=== PATIENT | female | born 1980 | race Caucasian/White ===

== ENCOUNTER 2017-01-15 11:06 | Day surgery (SDC) | payer BC, OTHER ==
[2016-12-26 09:34] VITALS: Ht 162.6 cm; Wt 84.0 kg
--- NOTE | 2017-01-14 16:59 | History and Physical ---
History & Physical Date Jan 14, 2017. Chief Complaint right ankle pain and instability History of Present Illness The patient is a 36 year old female with complaints of right ankle pain. She has a hx of rolling the right ankle multiple times. She had a previous lateral ankle ligament reconstruction but the procedure did not help her. She failed conservative management of the ankle instability. She is now being set up for surgical tx. Past Medical/Surgical History PMH: Congenital heart disease, murmur, anxiety/depression, degenerative disc disease, Past surgical hx: Right ankle surgery 1995, Tubal ligation 2010, Hysterectomy 2014 Allergies: none Allergies Coded Allergies: No Known Allergies (Unverified , 12/26/16) Home Medications Scheduled Amantadine Hcl (Amantadine Hcl), 100 MG PO HS Amitriptyline HCl (Amitriptyline HCl), 1 TAB PO HS Metoprolol Succinate (Metoprolol Succinate ER), 1 TAB PO QPM Multivitamin (Multivitamin), 1 TAB PO DAILY Scheduled PRN Acetaminophen/Codeine (Tylenol W/Codeine #3), 1 TAB PO Q8 PRN for Pain Physical Examination Skin: warm/dry, no rash, + pertinent finding (Healed lateral right ankle incision) Eyes: normal inspection ENT: normal ENT inspection, pharynx normal Head: normocephalic, atraumatic Neck: supple, no adenopathy, trachea midline Respiratory/Chest: lungs clear, normal breath sounds, no respiratory distress Cardiovascular: regular rate, rhythm Abdomen / GI: normal bowel sounds, non tender Extremities: normal range of motion, + pertinent finding (Antalgic right gait. Tender at the ATFL. Laxity with anterior drawer and talar tilt. ) Neurologic/Psych: no motor/sensory deficits, alert, oriented x 3 Diagnosis Right ankle instability Right ankle retained anchors lateral malleolus Plan of Treatment Recommend a right ankle scope with synovectomy, open modified Brostrom with Arthrex internal brace, removal hardware from lateral malleolus. All potential risks, benefits, complications, alternatives, and rehab were discussed with the patient. The patient wishes to proceed with the surgery as indicated. She will be scheduled for 01.15.17 with plan for ASA 81 mg BID x 30 days for DVT prophylaxis.
[~2017-01-15] VITALS: Ht 162.6 cm; Wt 84.0 kg
[~2017-01-15 11:06] MED LIST: ACET-749 PO; AMAN100C18 PO; AMT10 PO; ATROPINE SULFATE 0.1 MG/ML 5ML SYR IV PRN; BUPIVACAINE 0.5 % 5 MG/1 ML PF 10ML VIAL ONE; EpHEDrine SULFATE INJ 50 MG/ML AMP IV PRN; FENTANYL CITRATE INJ 50 MCG/1 ML 2 ML VIAL IV PRN; HYDROmorphone INJ 1 MG/ML SYR IV PRN; LABETALOL HCL IV 5 MG/ML 20ML IV PRN; LACTATED RINGER'S 1000ML 1,000 ML IV SCH; MEPERIDINE HCL 25 MG/ML CARP IV PRN; MULT-506 PO; ONDANSETRON INJ 2 MG/ML 2 ML VIAL IV PRN; SCOPOLAMINE 1.5 MG TDSY TD SCH; TPRSR/25 PO
--- NOTE | 2017-01-15 11:16 | History & Physical Bridge Note ---
H&P Re-Evaluation Bridge Note: I have examined the patient, reviewed the History & Physical and in the interval since the performance of the History & Physical I have noted the following changes of clinical significance: No changes noted
[2017-01-15 11:35] VITALS: BP 125/77; PULSE 75; TEMP 36.7; O2SAT 98
[2017-01-15] MEDS ORDERED: MIDAZOLAM HCL 1 MG/ML 2ML VIAL ONE ×2 (12:31→13:10)
[2017-01-15] MEDS ORDERED: FENTANYL CITRATE INJ 50 MCG/1 ML 2 ML VIAL ONE ×3 (12:31→15:34)
[2017-01-15] MEDS ORDERED: PROPOFOL IV EMULSION 10 MG/ML 20 ML VIAL IV ONE (13:10)
[2017-01-15] MEDS ORDERED: ONDANSETRON INJ 2 MG/ML 2 ML VIAL ONE ×2 (13:10→15:27)
[2017-01-15] MEDS ORDERED: LIDOCAINE HCL 2% 2 ML VIAL (20MG/ML) ONE (13:10)
[2017-01-15] MEDS ORDERED: DEXAMETHASONE SOD INJ 4 MG/ML VIAL ONE (13:10)
[2017-01-15] MEDS ORDERED: NURSING VERBAL MED ORDER ONE (13:15)
[2017-01-15] MEDS ORDERED: BUPIVACAINE/EPINEPHRINE 0.5% MPF 1:200,000 30 ML VIAL ONE (13:33)
[2017-01-15] MEDS ORDERED: EpINEphrine HCL INJ 1 MG/ML 5ML SYRINGE ONE (13:33)
[2017-01-15] MEDS: CEFAZOLIN 2000MG IV PUSH 10 ML IV SCH (13:45)
[2017-01-15] MEDS ORDERED: ASPEC81 PO (14:21)
[2017-01-15] MEDS ORDERED: PROM25TA9 PO (14:21)
[2017-01-15] MEDS ORDERED: CEPH500C2 PO (14:21)
[2017-01-15] MEDS ORDERED: OXYC-57 PO (14:21)
--- NOTE | 2017-01-15 14:23 | Discharge Instructions ---
Discharge Instructions Date of Service Jan 15, 2017. Admission Reason for Admission: Right Ankle Sprain, Pain D/T Internal Orthopedic P Discharge Discharge Diagnosis / Problem: Right ankle instability Discharge Goals Goal(s): Decrease discomfort, Improve function Activity Recommendations Activity Limitations: per Instructions/Follow-up section Weightbearing Status: Right non-weightbearing . Instructions / Follow-Up Instructions / Follow-Up ACTIVITY RECOMMENDATIONS: Limitations: No weight bearing to affected limb at all times. SPECIAL CARE INSTRUCTIONS: * Some drainage onto the dressing is normal and is no cause for alarm. * Some swelling is natural especially after walking. * When resting, keep your foot elevated above the level of your heart. * Call [facility] if you notice: -Increased drainage -Fever over 101 degrees F -Severe constant pain BANDAGE: * Leave bandage/cast in place unless otherwise directed. * Keep bandage/cast dry at all times. FOLLOW UP VISIT WITH DR. PADILLA If appointment is not already scheduled: Please call [facility] after you get home today to schedule a follow-up appointment for [address] Padilla at . Current Hospital Diet Patient's current hospital diet: Discharge Diet Recommended Diet: Regular Diet Pending Studies Studies pending at discharge: no Medical Emergencies . Who to Call and When: Medical Emergencies: If at any time you feel your situation is an emergency, please call 911 immediately. . Non-Emergent Contact Non-Emergency issues call your: Surgeon Call Non-Emergent contact if: temperature is above 101, your pain is not controlled, your pain is worsening . "Provider Documentation" section prepared by John Montalvo. . VTE Core Measure Inpt VTE Proph given/why not?: SCD's
[2017-01-15] MEDS ORDERED: PHENYLEPHRINE HCL INJ 10 MG/ML VIAL ONE (14:30)
[2017-01-15] MEDS ORDERED: OXYCODONE/ACETAMINOPHEN 5-325 TAB PO PRN (14:30)
--- NOTE | 2017-01-15 15:28 | [facility] Post Operative Brief Note ---
Immediate Operative Summary Operative Date Jan 15, 2017. Pre-Operative Diagnosis Right ankle lateral instability Right ankle retained anchors/permanent sutures lateral malleolus Post-Operative Diagnosis Right ankle lateral instability Right ankle retained anchors/permanent sutures lateral malleolus Lateral meniscoid lesion Synovitis Procedure(s) Performed 1. Right Ankle Arthroscopy with resection lateral meniscoid lesion; 2. Synovectomy; 3. Open Modified Brostrom Procedure with Arthrex Internal Brace; 4. Removal Hardware (Permanent Sutures) Surgeon Dr. Jose Schultz Truck Leasing Manager Surgeon(s) Ivania Montalvo PA-C Estimated Blood Loss 2cc Findings See dict Specimens Specimen A. Explanted hardware, right ankle Drains None Anesthesia GLMA w/ popliteal block and local Complication(s) None Disposition Recovery Room / PACU
--- NOTE | 2017-01-15 15:59 | Anesthesiology Progress Note ---
Anesthesia Post Op Note Date & Time Jan 15, 2017 at 15:59 Vital Signs Pain Intensity: 4 Vital Signs Past 12 Hours Date Time Temp Pulse Resp B/P (MAP) Pulse Ox O2 Delivery O2 Flow Rate FiO2 01/15/17 15:52 96 12 01/15/17 15:52 96 12 93 01/15/17 15:50 123/87 01/15/17 15:47 99 10 01/15/17 15:47 100 10 96 01/15/17 15:45 135/74 01/15/17 15:42 98 18 01/15/17 15:42 98 18 97 01/15/17 15:40 129/70 01/15/17 15:37 98 13 97 01/15/17 15:37 98 13 01/15/17 15:36 135/78 01/15/17 15:32 36.6 105 16 140/61 95 Oxymask 10 01/15/17 15:32 105 17 01/15/17 15:32 105 17 140/61 95 01/15/17 11:35 36.7 75 18 125/77 (93) 98 Room Air Notes Mental Status: alert / awake / arousable, participated in evaluation Pt Amnestic to Procedure: Yes Nausea / Vomiting: adequately controlled Pain: adequately controlled Airway Patency, RR, SpO2: stable & adequate BP & HR: stable & adequate Hydration State: stable & adequate Anesthetic Complications: no major complications apparent
[2017-01-15] MEDS ORDERED: CHECK SCOPOLAMINE PATCH PLACEMENT SCH (16:00)
--- NOTE | 2017-01-15 16:23 | OPERATIVE REPORT ---
DATE OF OPERATION: 01/15/2017 PREOPERATIVE DIAGNOSES: 1. Right ankle lateral instability. 2. Painful hardware/permanent sutures in the lateral distal fibula. POSTOPERATIVE DIAGNOSES: 1. Right ankle lateral instability. 2. Painful hardware/permanent sutures lateral distal fibula. 3. Lateral ankle meniscoid lesion. 4. Synovitis of the ankle. PROCEDURES: 1. Right ankle arthroscopy with resection lateral meniscoid lesion. 2. Synovectomy of the ankle. 3. Open modified Brostrom reconstruction with Arthrex internal brace. 4. Removal of hardware, lateral distal fibula including permanent sutures. SURGEON: Dr. Schultz. FLASH DESIGNER: John Montalvo PA-C who was present for patient positioning, sterile prep and drape, management of retractors and instruments. He was present through the critical portions of the case including wound closure, application of sterile dressing and transport of the patient to recovery. ANESTHESIA: General LMA with popliteal block and local. SPECIMENS: None. DRAINS: None. COMPLICATIONS: None. BLOOD LOSS: 2 mL. PERTINENT HISTORY: This is a 36-year-old female who had a history of previous lateral ligament reconstruction approximately 15-[address] Naidu in [place]. The patient had progressive instability of her ankle after initial period of stability post surgery. She had persistent chronic pain and persistent ligament laxity at the lateral ankle. She had attempted and failed conservative management including physician directed home exercises, physical therapy, anti-inflammatories, rest, use of a brace, use high top shoes and sneakers and general physical exercise. She had an MRI which demonstrated re-rupture of her lateral ligament complex and clinical exam demonstrating significant laxity collateral ligament complex. The patient had retained hardware and sutures per radiographs and MRI and was then scheduled for surgery as indicated. All potential risks, benefits, complications, alternatives, rehab, potential for incomplete relief of symptoms, need for further surgery, DVT, PE, , persistent pain, swelling, scarring, weakness, neurovascular injury, wound complications were discussed with the patient. The patient decided to proceed with the procedure as indicated. OPERATION AND FINDINGS: PROCEDURE: The patient was given a popliteal block in the preop holding area and taken to the operative suite and placed supine on the operating room table. After reviewed the consent and identification of proper operative site, the patient was anesthetized, LMA was placed. Tourniquet was placed high on the right thigh over cast padding. Right lower extremity was then sterilely prepped and draped in usual fashion. The joint was injected with approximately 12 mL of 0.5% Marcaine with epinephrine and then the 11 blade scalpel was then used to make an incision anterior medial aspect of the ankle joint followed by placement of blunt trocar and sleeve camera and inflow. Lateral portals established using an 18 gauge spinal needle under direct visualization followed by 11-blade scalpel incision, followed by placement of blunt probe. Next, the articular surfaces were examined and noted to have no evidence of osteochondral defects the medial lateral or central portions of the tibiotalar joint. There was noted to be synovitis throughout the ankle joint as well as a symptomatic appearing lateral meniscoid lesion. Next, 3.5 mm sucker shaver was introduced and the resection of the lateral meniscoid was performed as well as synovectomy of the ankle joint. After all particulate debris was flushed from the joint the remainder of the contour of the ankle joint was inspected and noted to be unremarkable. No osteochondral defects and no loose bodies in the gutters. There was noted to be a patulous lateral gutter consistent with lateral ligament instability. Next, the fluid was then flushed from the joint after it was lavaged and then the instruments were removed and the portal sites closed using interrupted 4-0 nylon sutures. This was then followed by exsanguination and elevation of the right lower extremity with an Esmarch bandage followed by elevation of the tourniquet to 325 mmHg. Next, a 15 blade scalpel was used to make an incision along the previous incision extending over the lateral aspect of the fibula extending over the lateral process of the talus. Next, the incision was deepened through the scar and subcutaneous tissue. Next, meticulous hemostasis was achieved with electrocautery. This was then followed by next the peroneal tendon sheath was then carefully entered with a 15 blade scalpel. Peroneal tendons were retracted and noted to be intact and retracted with a house retractor. Calcaneofibular ligament was identified. There was noted to be a suture within it. This suture was then removed, noted to be loosened. These sutures were removed without difficulty. It was a permanent suture. Next, the sutures placed from previous procedure were identified distal aspect of the fibula. These were still intact and 1 of the 3 knots had unraveled and the sutures were removed. The tissue integrity was fair however the repair had loosened. The sutures were removed without difficulty. The suture anchors however were well buried within the distal aspect of the fibula and it was decided to leave them intact and avoid any potential fracture of the distal fibula. The remnant of anterior talofibular ligament and lateral capsule were then sharply elevated from the distal aspect of the fibula. There were noted to be partial tears throughout the repair site. Next, the distal aspect of the fibula was then decorticated with a rongeur. This was then followed by separation of the superficial peroneal retinaculum from the lateral capsule and the anterior talofibular ligament. This was performed with a tenotomy scissor. Next, the 4.75 mm drill was then used to make a tugboat pilot hole in the lateral process of the talus, taking care to avoid penetrating the subtalar joint or the talofibular joint. Next, the hole was tapped with a 4.75 mm tap followed by placement of a SwiveLock anchor with fiber tapes. Next, the sutures were then placed on a free needle and then woven through the anterior talofibular ligament and the lateral capsule of the joint and then passed under the periosteal tissue distal lateral aspect of the fibula. Next, after placement of the suture anchor for the distal fibula was determined, this was then drilled with a 2.5 mm drill and tapped partially and then the foot was held in neutral dorsiflexion and slight eversion with a hemostat under the FiberTapes to prevent over tightening. Next, after these sutures were marked and the foot was held in appropriate position with slight eversion in neutral dorsiflexion FiberTapes were then anchored into the distal lateral fibula using the 3.5 mm composite anchor. The lateral ligament stabilization was completed and noted to be stable with anterior and posterior drawer and talar tilt test. Next, the calcaneofibular ligament was then plicated using a #2 FiberWire suture. This tissue was then tied and cut with the foot held in neutral dorsiflexion and eversion. Next, the stay sutures and the SwiveLock was then passed under the periosteal tissue of the distal aspect of the fibula in a [id number] closure was then performed over the superficial peroneal retinacular tissues. Finally, the knot stack was then secured distally to prevent prominence in the soft tissue. The wound was irrigated with sterile normal saline. The peroneal tendon sheath was then closed using 2-0 Vicryl. The dermis was closed using buried interrupted 3-0 Vicryl, skin was closed using 4-0 nylon. A sterile compressive dressing and bulky Artis Matthew plaster splint was applied with the foot held in neutral dorsiflexion and eversion. Tourniquet was released. The patient was awakened and taken to recovery in stable condition. I attest to the content of the Intraoperative Record and any orders documented therein. Any exception s are noted below.
[2017-01-15 16:25] VITALS: BP 116/65; PULSE 98; TEMP 36.5; O2SAT 91
[2017-01-15 16:55] VITALS: BP 124/65; PULSE 99; TEMP 36.5; O2SAT 95
== END 2017-01-15 17:15 | disposition home or self-care (01) ==
LOC: C.ACU 11:06
PROVIDERS: ATTEND Orthopaedic Surgery Sports Medicine
DX: M25.371 Other instability, right ankle (principal); T84.84XA Pain due to internal orthopedic prosthetic devices, implants and grafts, initial encounter; M25.871 Other specified joint disorders, right ankle and foot; M65.871 Other synovitis and tenosynovitis, right ankle and foot; Y83.1 Surgical operation with implant of artificial internal device as the cause of abnormal reaction of the patient, or of later complication, without mention of misadventure at the time of the procedure; Z79.899 Other long term (current) drug therapy; F41.9 Anxiety disorder, unspecified; F32.9 Major depressive disorder, single episode, unspecified; Z98.51 Tubal ligation status; Z90.710 Acquired absence of both cervix and uterus